=== PATIENT | female | born 1980 | race Caucasian/White ===

== ENCOUNTER 2017-09-13 12:25 | Inpatient (IN) | payer MEDICARE, MEDICAID ==
[2017-09-13] MEDS ORDERED: Morphine 4 MG/ML VIAL ONE (13:20)
--- NOTE | 2017-09-13 13:46 | C.PDOC ---
History Of Present Illness 36-year-old female, PMHx includes Diabetes and Autism, is sent to the emergency department by PMD with complaints of worsening wound to the right mid-back since 08/31. Patient states she developed an abscess to her right mid back and was seen in an urgent care on 08/31, where she was given antibiotics (Bactrim and Keflex). Patient returned to urgent care three days later, and the area was draining. States her wound was cultured but they did not drain it. Patient completed course of antibiotics a few days ago, but symptoms did not improve. She was seen by PMD Dr Moura in office today, where she was directed to ED for worsening abscess and failing outpatient treatment. Denies fevers, nausea/ vomiting, chills, shortness of breath, or any other associated symptoms. No other complaints at this time. Time Seen by Provider: 09/13/17 13:05 Chief Complaint (Nursing): Abnormal Skin Integrity Past Medical History Reviewed: Historical Data, Nursing Documentation, Vital Signs Vital Signs: Last Vital Signs Temp 98 F 09/13/17 12:32 Pulse 95 H 09/13/17 12:32 Resp 18 09/13/17 12:32 BP 91/64 L 09/13/17 12:32 Pulse Ox 98 09/13/17 14:17 - Medical History PMH: Hyperlipidemia Family History: States: No Known Family Hx - Social History Hx Alcohol Use: No Hx Substance Use: No - Immunization History Hx Tetanus Toxoid Vaccination: Yes Hx Influenza Vaccination: Yes Hx Pneumococcal Vaccination: No ED Course And Treatment - Laboratory Results Result Diagrams: 09/13/17 13:49 09/13/17 13:49 Lab Interpretation: Abnormal (Elevated glucose 518 with Na 129. Normal WBC) O2 Sat by Pulse Oximetry: 98 (RA) Pulse Ox Interpretation: Normal Progress Note: Patient treated with IV Morphine for pain and IV fluids and Insulin for elevated blood sugar. - Physician Consult Information Outcome Of Conversation: Case discussed with Dr Moura. She will be admitted and consultation with Dr Dennis obtained. He plans to keep her NPO tonight and debride the wound in the OR tomorrow. Medical Decision Making Medical Decision Making: Plan: * CMP * CBC * Morphine * Blood Culture * Reassess and Disposition Disposition - Disposition Disposition: HOSPITALIZED Disposition Time: 14:21 Condition: STABLE - POA Present On Arrival: Poor Glycemic Control - Clinical Impression Clinical Impression: Cutaneous abscess of back excluding buttocks - Scribe Statement The provider has reviewed the documentation as recorded by the Scribe (Hue Orellana) All medical record entries made by the Scribe were at my direction and personally dictated by me. I have reviewed the chart and agree that the record accurately reflects my personal performance of the history, physical exam, medical decision making, and the department course for this patient. I have also personally directed, reviewed, and agree with the discharge instructions and disposition.
[2017-09-13 13:57] LABS: BASO # 0.1 K/uL (0.0-0.2); BASO % 0.9 % (0.0-2.0); EOS # 0.1 K/uL (0.0-0.7); EOS % 0.8 % (0.0-4.0); HEMOGLOBIN 10.9 g/dL (11.0-16.0); LYMPH # 2.2 K/uL (1.0-4.3); LYMPH % 24.3 % (20.0-40.0); MEAN CORPUSCULAR HEMOGLOBIN 20.8 pg (27.0-31.0); MEAN CORPUSCULAR HGB CONC 31.6 g/dL (33.0-37.0); MEAN PLATELET VOLUME 7.6 fL (7.2-11.7); MONO # 0.8 K/uL (0.0-0.8); MONO % 8.7 % (0.0-10.0); NEUT % 65.3 % (50.0-75.0); NRBC % 0.2 % (0.0-2.0); RBC 5.25 Mil/uL (3.80-5.20); RED CELL DISTRIBUTION WIDTH 15.2 % (11.5-14.5); WHITE BLOOD COUNT 9.1 K/uL (4.8-10.8)
[2017-09-13 14:15] LABS: ALB/GLOB RATIO 1.1 (1.0-2.1); ALBUMIN 3.7 g/dL (3.5-5.0); ALT/SGPT 23 U/L (9-52); AST/SGOT 21 U/L (14-36); BLOOD UREA NITROGEN 14 mg/dL (7-17); CALCIUM 8.9 mg/dl (8.6-10.4); GFR AFRICAN-AMERICAN > 60; GFR NON-AFRICAN AMERICAN > 60
[2017-09-13] MEDS ORDERED: Sodium Chloride 0.9% 1,000 ML IV ONE (14:16)
[2017-09-13] MEDS ORDERED: (Novolin R) Insulin Human Regular 100 units/ml vial IV STA (14:16)
[2017-09-13] MEDS ORDERED: (Novolin R) Insulin Human Regular 100 units/ml vial ONE (14:24)
[2017-09-13] MEDS ORDERED: Sodium Chloride 0.9% 1,000 ML ONE (14:24)
--- NOTE | 2017-09-13 16:50 | CP.PCM.CON ---
History of Present Illness - History of Present Illness History of Present Illness: General Surgery- Dr. Dennis 36F pmhx significant for NIDDM and autisim came to the emergency department for a back wound that started to have purulent drainage on the first august. Patient went to urgent care and got cultures came back positive for MSSA, was put on sulfa and completed course of abx. Denies current fevers, chills, chest pain, shortness of breath, nausea, vomiting , diarrhea PMH: NIDDM, autism, boil on abdomen PSH: denies ALL: NKDA SocialHx: Lives w/ mother at home Review of Systems - Review of Systems All systems: reviewed and no additional remarkable complaints except - Constitutional Constitutional: As Per HPI Past Patient History - Past Social History Smoking Status: Never Smoked - NEUROLOGICAL Other/Comment: Autism - ENDOCRINE/METABOLIC Hx Diabetes Mellitus Type 2: Yes - INTEGUMENTARY Hx Cellulitis: Yes - PSYCHIATRIC Hx Substance Use: No - SURGICAL HISTORY Hx Surgeries: Yes Other/Comment: right ovarian cyst - ANESTHESIA Hx Anesthesia: Yes Hx Anesthesia Reactions: No Hx Malignant Hyperthermia: No Meds Allergies/Adverse Reactions: Allergies Allergy/AdvReac Type Severity Reaction Status Date / Time No Known Allergies Allergy Verified 09/13/17 12:34 - Medications Medications: Current Medications Acetaminophen (Tylenol 325mg Tab) 650 mg PO Q6 PRN PRN Reason: Fever >100.4 F Sodium Chloride (Sodium Chloride 0.9%) 1,000 mls @ 100 mls/hr IV .Q10H [facility] Vancomycin/Sodium Chloride (Vancomycin 1 Gm/Ns 200 Ml) 1 gm in 200 mls @ 133 mls/hr IVPB Q12H [facility] Stop: 09/18/17 16:46 Morphine Sulfate (Morphine) 1 mg IVP Q4 PRN PRN Reason: Pain, moderate (4-7) Physical Exam - Constitutional Appears: Non-toxic, No Acute Distress - Head Exam Head Exam: ATRAUMATIC - Eye Exam Eye Exam: EOMI. absent: Scleral icterus - ENT Exam ENT Exam: Mucous Membranes Moist - Respiratory Exam Respiratory Exam: NORMAL BREATHING PATTERN. absent: Accessory Muscle Use, Respiratory Distress - Cardiovascular Exam Cardiovascular Exam: +S1, +S2. absent: Bradycardia, Tachycardia - GI/Abdominal Exam GI & Abdominal Exam: Soft. absent: Distended, Firm, Rigid, Tenderness - Extremities Exam Extremities exam: Positive for: normal inspection. Negative for: calf tenderness - Neurological Exam Neurological exam: Alert, Oriented x3 - Skin Additional comments: back 10cm x 3cm active purulent drainage tender to palpation Results - Vital Signs Recent Vital Signs: Last Vital Signs Temp 98 F 09/13/17 12:32 Pulse 95 H 09/13/17 12:32 Resp 18 09/13/17 12:32 BP 91/64 L 09/13/17 12:32 Pulse Ox 98 09/13/17 14:21 - Labs Result Diagrams: 09/13/17 13:49 09/13/17 13:49 Labs: Laboratory Results - last 24 hr 09/13/17 09/13/17 09/13/17 13:49 13:49 15:28 WBC 9.1 RBC 5.25 H Hgb 10.9 L Hct 34.7 MCV 66.0 L MCH 20.8 L MCHC 31.6 L RDW 15.2 H Plt Count 534 H MPV 7.6 Neut % (Auto) 65.3 Lymph % (Auto) 24.3 Bond % (Auto) 8.7 Eos % (Auto) 0.8 Baso % (Auto) 0.9 Neut # (Auto) 6.0 Lymph # (Auto) 2.2 Bond # (Auto) 0.8 Eos # (Auto) 0.1 Baso # (Auto) 0.1 Sodium 129 L Potassium 4.3 Chloride 89 L Carbon Dioxide 28 Anion Gap 16 BUN 14 Creatinine 0.4 L Est GFR ( Amer) > 60 Est GFR (Non-Af Amer) > 60 POC Glucose (mg/dL) 366 H Random Glucose 518 H* Calcium 8.9 Total Bilirubin 0.5 AST 21 ALT 23 Alkaline Phosphatase 102 Total Protein 7.0 Albumin 3.7 Globulin 3.3 Albumin/Globulin Ratio 1.1 Assessment & Plan - Assessment and Plan (Free Text) Assessment: 36F back abscess active purulent drainage Plan: - NPO @ [facility] - IV Abx - Plan for OR tomorrow for I&D - f/u AM labs - discussed w/ Dr. Dennis surgical attending Sherif Inman PGY1
[2017-09-13] MEDS ORDERED: Tetanus/Diphtheria Toxoids 0.5 ml Syringe IM ONE (17:16)
[2017-09-13] MEDS: Vancomycin 1 gm/NS 200 ml 1 GM/200 ML BAG IVPB SCH (17:17)
--- NOTE | 2017-09-13 17:19 | CP.PCM.HP ---
History of Present Illness - History of Present Illness History of Present Illness: 36F pmhx significant for NIDDM and autisim came to the emergency department for a back wound that started to have purulent drainage on the first august. Patient went to urgent care and got cultures came back positive for MSSA, was put on sulfa and completed course of abx. Denies current fevers, chills, chest pain, shortness of breath, nausea, vomiting , diarrhea comes in with large necrotic unstageable wound on upper lumbar area PMH: NIDDM, autism, boil on abdomen PSH: denies ALL: NKDA SocialHx: Lives w/ mother at home Present on Admission - Present on Admission Any Indicators Present on Admission: No History of DVT/PE: No History of Uncontrolled Diabetes: No Urinary Catheter: No Decubitus Ulcer Present: No History Surgical Site Infection Following: None Review of Systems - Review of Systems Systems not reviewed;Unavailable: Altered Mental Status All systems: reviewed and no additional remarkable complaints except - Constitutional Constitutional: As Per HPI - EENT Eyes: absent: As Per HPI, Blind Spots, Blurred Vision, Change in Vision, Decreased Night Vision, Diplopia, Discharge, Dry Eye, Exophthalmos, Floaters, Irritation, Itchy Eyes, Loss of Peripheral Vision, Pain, Photophobia, Requires Corrective Lenses, Sees Flashes, Spots in Vision, Tunnel Vision, Other Visual Disturbances, Loss of Vision, Other Ears: absent: As Per HPI, Decreased Hearing, Ear Discharge, Ear Pain, Tinnitus, Abnormal Hearing, Disequilibrium, Dizziness, Other Nose/Mouth/Throat: absent: As Per HPI, Epistaxis, Nasal Congestion, Nasal Discharge, Nasal Obstruction, Nasal Trauma, Nose Pain, Post Nasal Drip, Sinus Pain, Sinus Pressure, Bleeding Gums, Change in Voice, Dental Pain, Dry Mouth, Dysphagia, Halitosis, Hoarsness, Lip Swelling, Mouth Lesions, Mouth Pain, Odynophagia, Sore Throat, Throat Swelling, Tongue Swelling, Facial Pain, Neck Pain, Neck Mass, Other - Breasts Breasts: absent: As Per HPI, Change in Shape, Mass, Pain, Nipple Discharge, Nipple Inversion, Skin Changes, Swelling, Other - Cardiovascular Cardiovascular: absent: As Per HPI, Acrocyanosis, Chest Pain, Chest Pain at Rest , Chest Pain with Activity, Claudication, Diaphoresis, Dyspnea, Dyspnea on Exertion, Edema, Irregular Heart Rhythm, Pain Radiating to Arm/Neck/Jaw, Leg Edema, Leg Ulcers, Lightheadedness, Orthopnea, Palpitations, Paroxysmal Nocturnal Dyspnea, Pedal Edema, Radiating Pain, Rapid Heart Rate, Slow Heart Rate, Syncope, Other - Respiratory Respiratory: absent: As Per HPI, Cough, Dyspnea, Hemoptysis, Dyspnea on Exertion , Wheezing, Snoring, Stridor, Pain on Inspiration, Chest Congestion, Excessive Mucous Production, Change in Mucous Color, Pain with Coughing, Other - Gastrointestinal Gastrointestinal: absent: As Per HPI, Abdominal Pain, Belching, Bloating, Change in Bowel Habits, Change in Stool Character, Coffee Ground Emesis, Constipation, Cramping, Diarrhea, Dyspepsia, Dysphagia, Early Satiety, Excessive Flatus, Fecal Incontinence, Heartburn, Hematemesis, Hematochezia, Loose Stools, Melena, Nausea, Odynophagia, Temesmus, Vomiting, Other - Genitourinary Genitourinary: absent: As Per HPI, Change in Urinary Stream, Difficulty Urinating, Dysuria, Flank Pain, Hematuria, Pyuria, Nocturia, Urinary Incontinence, Urinary Frequency, Urinary Hesitance, Urinary Urgency, Voiding Freq/Small Amts, Freq UTI, Hx Renal/Bladder Calculi, Hx /Renal Surgery, Bladder Distension, Other - Reproductive: Female Reproductive:Female: absent: As Per HPI, Amenorrhea, Amenorrhea/ Control, Currently Menstual, Cycle <21 Days, Cycle >35 Days, Cycle Variable, Menses 1-7 Days, Menses >/= 8 Days, Menses Variable, Cycle > 4 Weeks Between, No Menses for 6 Months, Heavy Menses, Light Menses, Normal Menses, Spotting Between Cycles , S/P Hysterectomy, Menopausal, Post Menopausal, Premenarche, Abnormal Vaginal Bleeding, Dysmenorrhea, Dyspareunia, Genital Lesions, Genital Pruritis, Pelvic Pain, Prolapse Symptoms, Sexual Dysfunction, Vaginal Discharge, Vaginal Dryness , Vaginal Odor, Vaginal Pruritis, Other - Menstruation Menstruation: absent: As Per HPI, Amenorrhea, Amenorrhea/ Control, Currently Menstual, Cycle <21 Days, Cycle >35 Days, Cycle Variable, Menses 1-7 Days, Menses >/= 8 Days, Menses Variable, Cycle > 4 Weeks Between, No Menses for 6 Months, Heavy Menses, Light Menses, Normal Menses, Spotting Between Cycles , S/P Hysterectomy, Menopausal, Post Menopausal, Premenarche, Abnormal Vaginal Bleeding, Dysmenorrhea, Other - Musculoskeletal Musculoskeletal: absent: As Per HPI, Abnormal Gait, Arthralgias, Atrophy, Back Pain, Deformity, Joint Swelling, Limited Range of Motion, Loss of Height, Muscle Cramps, Muscle Weakness, Myalgias, Neck Pain, Numbness, Radiating Pain into Limb, Stiffness, Tingling, Other - Integumentary Integumentary: As Per HPI, Skin Pain, Wounds - Neurological Neurological: As Per HPI - Psychiatric Psychiatric: absent: As Per HPI, Abnormal Sleep Pattern, Anhedonia, Anxiety, Auditory Hallucinations, Behavioral Changes, Change in Appetite, Change in Libido, Confusion, Depression, Difficulty Concentrating, Hallucinations, Homicidal Ideation, Hopelessness, Irritability, Memory Loss, Mood Swings, Panic Attacks, Paranoia, Suicidal Ideation, Visual Hallucinations, Tactile Hallucinations, Other - Endocrine Endocrine: absent: As Per HPI, Change in Body Appearance, Change in Libido, Cold Intolorance, Deepening of Voice, Excessive Sweating, Fatigue, Flushing, Heat Intolorance, Increase in Ring/Shoe/Hat Size, Palpitations, Polydipsia, Polyphagia, Polyuria, Other - Hematologic/Lymphatic Hematologic: absent: As Per HPI, Easy Bleeding, Easy Bruising, Lymphadenopathy, Other Past Patient History - Past Social History Smoking Status: Never Smoked - NEUROLOGICAL Other/Comment: Autism - ENDOCRINE/METABOLIC Hx Diabetes Mellitus Type 2: Yes - INTEGUMENTARY Hx Cellulitis: Yes - PSYCHIATRIC Hx Substance Use: No - SURGICAL HISTORY Hx Surgeries: Yes Other/Comment: right ovarian cyst - ANESTHESIA Hx Anesthesia: Yes Hx Anesthesia Reactions: No Hx Malignant Hyperthermia: No Meds Allergies/Adverse Reactions: Allergies Allergy/AdvReac Type Severity Reaction Status Date / Time No Known Allergies Allergy Verified 09/13/17 12:34 Physical Exam - Constitutional Appears: Non-toxic, No Acute Distress, Confused, Chronically Ill - Head Exam Head Exam: ATRAUMATIC, NORMAL INSPECTION, NORMOCEPHALIC - Eye Exam Eye Exam: PERRL. absent: Scleral icterus - ENT Exam ENT Exam: Mucous Membranes Dry, Normal External Ear Exam, Normal Oropharynx - Neck Exam Neck exam: Negative for: Lymphadenopathy - Respiratory Exam Respiratory Exam: Decreased Breath Sounds, Clear to Auscultation Bilateral - Cardiovascular Exam Cardiovascular Exam: REGULAR RHYTHM, +S1, +S2 - GI/Abdominal Exam GI & Abdominal Exam: Diminished Bowel Sounds, Soft. absent: Guarding, Rebound, Rigid, Tenderness - Rectal Exam Rectal Exam: Deferred - Exam Exam: NORMAL INSPECTION - Extremities Exam Extremities exam: Positive for: pedal pulses present. Negative for: calf tenderness, pedal edema, tenderness - Back Exam Back exam: rash noted. absent: CVA tenderness (L), CVA tenderness (R), NORMAL INSPECTION Additional comments: large 6cm necrotic lesion on back over midline with purulence - Neurological Exam Neurological exam: Alert, CN II-XII Intact, Oriented x3, Reflexes Normal - Psychiatric Exam Psychiatric exam: Normal Mood - Skin Skin Exam: Dry, Intact Results - Vital Signs Recent Vital Signs: Last Vital Signs Temp 98 F 09/13/17 12:32 Pulse 95 H 09/13/17 12:32 Resp 18 09/13/17 12:32 BP 91/64 L 09/13/17 12:32 Pulse Ox 98 09/13/17 14:21 - Labs Result Diagrams: 09/13/17 13:49 09/13/17 13:49 Labs: Laboratory Results - last 24 hr 09/13/17 09/13/17 09/13/17 13:49 13:49 15:28 WBC 9.1 RBC 5.25 H Hgb 10.9 L Hct 34.7 MCV 66.0 L MCH 20.8 L MCHC 31.6 L RDW 15.2 H Plt Count 534 H MPV 7.6 Neut % (Auto) 65.3 Lymph % (Auto) 24.3 Gosper % (Auto) 8.7 Eos % (Auto) 0.8 Baso % (Auto) 0.9 Neut # (Auto) 6.0 Lymph # (Auto) 2.2 Gosper # (Auto) 0.8 Eos # (Auto) 0.1 Baso # (Auto) 0.1 Sodium 129 L Potassium 4.3 Chloride 89 L Carbon Dioxide 28 Anion Gap 16 BUN 14 Creatinine 0.4 L Est GFR ( Amer) > 60 Est GFR (Non-Af Amer) > 60 POC Glucose (mg/dL) 366 H Random Glucose 518 H* Calcium 8.9 Total Bilirubin 0.5 AST 21 ALT 23 Alkaline Phosphatase 102 Total Protein 7.0 Albumin 3.7 Globulin 3.3 Albumin/Globulin Ratio 1.1 Decision To Admit - Pt Status Changed To: Hospital Disposition Of: Inpatient - Admit Certification Admit to Inpatient:: After my assessment, the patient will require hospitalization for at least two midnights. This is because of the severity of symptoms shown, intensity of services needed, and/or the medical risk in this patient being treated as an outpatient. - InPatient: Physician Admission Certification:: for patient safety and wellbeing will need admission for IV antibiotics and wound care - . Bed Request Type: Regular Admitting Physician: Rigoberto Henley
--- NOTE | 2017-09-13 17:33 | RAD ---
HISTORY: pre-op COMPARISON: None available. TECHNIQUE: Chest, one view. FINDINGS: Examination limited by habitus and hypoinflation. LUNGS: No focal consolidation. Numerous bilateral hilar nodular densities likely granulomas versus prominent vessels on end. Please note that chest x-ray has limited sensitivity for the detection of pulmonary masses. PLEURA: No significant pleural effusion identified. No definite pneumothorax . CARDIOVASCULAR: Heart size appears within normal limits. OSSEOUS STRUCTURES: No acute osseous abnormality identified. VISUALIZED UPPER ABDOMEN: Unremarkable. OTHER FINDINGS: None. IMPRESSION: Hypoinflation. Numerous bilateral hilar nodular densities identified, likely granulomas versus prominent vessels on end.
[2017-09-13 19:46] LABS: IRON 85 ug/dL (37-170)
[2017-09-13 19:55] LABS: % IRON SATURATION 30 (20-55); TOTAL IRON BINDING CAPACITY 283 ug/dL (250-450)
[2017-09-13] MEDS ORDERED: Morphine 4 MG/ML VIAL IVP PRN (20:00)
[2017-09-13] MEDS ORDERED: Pneumococcal 23-Valent Vaccine IM ONE (20:19)
[2017-09-13] MEDS: Piperacillin/Tazobact 3.375 GM in Sodium Chloride 100 ML IVPB SCH (20:37)
[2017-09-13] MEDS: (Novolin R) Insulin Human Regular 100 units/ml vial SC SCH (22:30)
--- NOTE | 2017-09-13 22:43 | CP.PCM.CON ---
History of Present Illness - History of Present Illness History of Present Illness: Reason for consult: pre-op back abscess Review of Systems - Constitutional Constitutional: Anorexia - Cardiovascular Cardiovascular: absent: Chest Pain, Dyspnea on Exertion, Edema - Respiratory Respiratory: absent: Cough, Dyspnea on Exertion - Gastrointestinal Gastrointestinal: absent: Melena, Vomiting Past Patient History - Past Medical History & Family History Past Medical History?: Yes - Past Social History Smoking Status: Never Smoked - NEUROLOGICAL Other/Comment: Autism - ENDOCRINE/METABOLIC Hx Diabetes Mellitus Type 2: Yes - INTEGUMENTARY Hx Cellulitis: Yes (hx. of boils from the back area) - MUSCULOSKELETAL/RHEUMATOLOGICAL Hx Falls: No - PSYCHIATRIC Hx Substance Use: No - SURGICAL HISTORY Hx Surgeries: Yes Other/Comment: right ovarian cyst - ANESTHESIA Hx Anesthesia: Yes Hx Anesthesia Reactions: No Hx Malignant Hyperthermia: No Meds Allergies/Adverse Reactions: Allergies Allergy/AdvReac Type Severity Reaction Status Date / Time No Known Allergies Allergy Verified 09/13/17 12:34 - Medications Medications: Current Medications Acetaminophen (Tylenol 325mg Tab) 650 mg PO Q6 PRN PRN Reason: Fever >100.4 F Sodium Chloride (Sodium Chloride 0.9%) 1,000 mls @ 100 mls/hr IV .Q10H [facility] Vancomycin/Sodium Chloride (Vancomycin 1 Gm/Ns 200 Ml) 1 gm in 200 mls @ 133 mls/hr IVPB Q12H [facility] Stop: 09/18/17 17:01 Last Admin: 09/13/17 17:17 Dose: 133 mls/hr Piperacillin Sod/Tazobactam (Sod 3.375 gm/ Sodium Chloride) 100 mls @ 200 mls/ hr IVPB Q8H [facility] Last Admin: 09/13/17 20:37 Dose: 200 mls/hr Insulin Human Regular (Novolin R) 0 unit SC ACHS RADHA PRN Reason: Protocol Morphine Sulfate (Morphine) 1 mg IVP Q4 PRN PRN Reason: Pain, moderate (4-7) Physical Exam - Constitutional Appears: Non-toxic - Eye Exam Eye Exam: absent: Scleral icterus - ENT Exam ENT Exam: Mucous Membranes Moist - Neck Exam Neck exam: Positive for: Full Rom - Respiratory Exam Respiratory Exam: Clear to Auscultation Bilateral - Cardiovascular Exam Cardiovascular Exam: REGULAR RHYTHM - Extremities Exam Extremities exam: Negative for: pedal edema - Back Exam Back exam: absent: CVA tenderness (L), vertebral tenderness Additional comments: Necrotic purulent ulcer in the upper lumbar area Results - Vital Signs Recent Vital Signs: Last Vital Signs Temp 97.3 F L 09/13/17 18:30 Pulse 88 09/13/17 18:30 Resp 20 09/13/17 18:30 BP 95/66 L 09/13/17 18:30 Pulse Ox 97 09/13/17 18:30 - Labs Result Diagrams: 09/13/17 13:49 09/13/17 13:49 Labs: Laboratory Results - last 24 hr 09/13/17 09/13/17 09/13/17 13:49 13:49 15:28 WBC 9.1 RBC 5.25 H Hgb 10.9 L Hct 34.7 MCV 66.0 L MCH 20.8 L MCHC 31.6 L RDW 15.2 H Plt Count 534 H MPV 7.6 Neut % (Auto) 65.3 Lymph % (Auto) 24.3 [place]borne % (Auto) 8.7 Eos % (Auto) 0.8 Baso % (Auto) 0.9 Neut # (Auto) 6.0 Lymph # (Auto) 2.2 [place]borne # (Auto) 0.8 Eos # (Auto) 0.1 Baso # (Auto) 0.1 Sodium 129 L Potassium 4.3 Chloride 89 L Carbon Dioxide 28 Anion Gap 16 BUN 14 Creatinine 0.4 L Est GFR ( Amer) > 60 Est GFR (Non-Af Amer) > 60 POC Glucose (mg/dL) 366 H Random Glucose 518 H* Calcium 8.9 Iron TIBC % Saturation Total Bilirubin 0.5 AST 21 ALT 23 Alkaline Phosphatase 102 Total Protein 7.0 Albumin 3.7 Globulin 3.3 Albumin/Globulin Ratio 1.1 09/13/17 19:29 WBC RBC Hgb Hct MCV MCH MCHC RDW Plt Count MPV Neut % (Auto) Lymph % (Auto) [place]borne % (Auto) Eos % (Auto) Baso % (Auto) Neut # (Auto) Lymph # (Auto) Osborne # (Auto) Eos # (Auto) Baso # (Auto) Sodium Potassium Chloride Carbon Dioxide Anion Gap BUN Creatinine Est GFR ( Amer) Est GFR (Non-Af Amer) POC Glucose (mg/dL) Random Glucose Calcium Iron 85 TIBC 283 % Saturation 30 Total Bilirubin AST ALT Alkaline Phosphatase Total Protein Albumin Globulin Albumin/Globulin Ratio Assessment & Plan - Assessment and Plan (Free Text) Assessment: Purulent necrotic wound in the high lumbar area T2dm Autism Lipid disorder Plan: Patient may go for I&D/ debridement of necrotic wound with acceptable risk. Antibiotic by Dr Henley Endo consult w/ Dr Ritchie
[2017-09-14] MEDS: Sodium Chloride 0.9% 1,000 ML IV SCH ×3 (00:05→21:59)
[2017-09-14] MEDS: Piperacillin/Tazobact 3.375 GM in Sodium Chloride 100 ML IVPB SCH ×3 (02:11→17:57)
[2017-09-14] MEDS: Vancomycin 1 gm/NS 200 ml 1 GM/200 ML BAG IVPB SCH ×2 (04:44→17:55)
[2017-09-14] MEDS: (Novolin R) Insulin Human Regular 100 units/ml vial SC SCH ×4 (07:50→21:58)
[2017-09-14 08:39] LABS: BASO # 0.1 K/uL (0.0-0.2); BASO % 0.7 % (0.0-2.0); EOS # 0.1 K/uL (0.0-0.7); EOS % 1.2 % (0.0-4.0); LYMPH # 1.9 K/uL (1.0-4.3); LYMPH % 23.3 % (20.0-40.0); MEAN CELL VOLUME 66.4 fL (81.0-99.0); MEAN CORPUSCULAR HEMOGLOBIN 20.9 pg (27.0-31.0); MEAN CORPUSCULAR HGB CONC 31.5 g/dL (33.0-37.0); MEAN PLATELET VOLUME 7.8 fL (7.2-11.7); MONO # 0.7 K/uL (0.0-0.8); MONO % 8.4 % (0.0-10.0); NEUT # 5.5 K/uL (1.8-7.0); NEUT % 66.4 % (50.0-75.0); NRBC % 0.1 % (0.0-2.0); RBC 5.26 Mil/uL (3.80-5.20); RED CELL DISTRIBUTION WIDTH 15.1 % (11.5-14.5); WHITE BLOOD COUNT 8.4 K/uL (4.8-10.8)
[2017-09-14] MEDS ORDERED: Midazolam 2 MG/2 ML VIAL ONE (09:24)
[2017-09-14] MEDS ORDERED: Propofol 10 mg/ml Inj (20 ML) ONE (09:24)
[2017-09-14] MEDS ORDERED: Lactated Ringer's 1,000 ML IV ONE (09:30)
[2017-09-14] MEDS ORDERED: Bupivacaine-Epi 0.5%-1:200,000 PF Inj IJ ONE (10:26)
--- NOTE | 2017-09-14 11:00 | PCM.SURG1 ---
Surgeon's Initial Post Op Note - Surgeon's Notes Surgeon: Dr. Dennis Keyseating Machine Set Up Operator: PGY1, Type of Anesthesia: General Endo, Local Pre-Operative Diagnosis: Infected Back Abscess Operative Findings: necrotic tissue on the skin, subcutatneous and muscle tissue. Infection tracked 10cm x 8 cm. for details see op note Post-Operative Diagnosis: as above Operation Performed: incision drainage and debridement of skin, subcutaneous tissue, and muscle of back Specimen/Specimens Removed: skin and subcutaneous tissue. wound culture Estimated Blood Loss: EBL {In ML}: 10 Drains Used: No Drains Date of Surgery/Procedure: 09/14/17 Time of Surgery/Procedure: 11:00
[2017-09-14 16:44] VITALS: RESP 20
--- NOTE | 2017-09-14 17:44 | CP.PCM.PN ---
Subjective - Date & Time of Evaluation Date of Evaluation: 09/14/17 Time of Evaluation: 07:00 - Subjective Subjective: events noted consultants notes apprecated IV rx in progress Objective - Vital Signs/Intake and Output Vital Signs (last 24 hours): Temp Pulse Resp BP Pulse Ox 98.5 F 89 20 95/65 L 95 09/14/17 16:00 09/14/17 16:00 09/14/17 16:00 09/14/17 16:00 09/14/17 16:00 Intake and Output: 09/14/17 09/14/17 06:59 18:59 Intake Total 100 1850 Output Total 200 Balance -100 1850 - Medications Medications: Current Medications Acetaminophen (Tylenol 325mg Tab) 650 mg PO Q6 PRN PRN Reason: Fever >100.4 F Sodium Chloride (Sodium Chloride 0.9%) 1,000 mls @ 100 mls/hr IV .Q10H [facility] Last Admin: 09/14/17 09:16 Dose: Not Given Vancomycin/Sodium Chloride (Vancomycin 1 Gm/Ns 200 Ml) 1 gm in 200 mls @ 133 mls/hr IVPB Q12H [facility] Stop: 09/18/17 17:01 Last Admin: 09/14/17 04:44 Dose: 133 mls/hr Piperacillin Sod/Tazobactam (Sod 3.375 gm/ Sodium Chloride) 100 mls @ 200 mls/ hr IVPB Q8H [facility] Last Admin: 09/14/17 10:00 Dose: 100 mls Insulin Human Regular (Novolin R) 0 unit SC ACHS RADHA PRN Reason: Protocol Last Admin: 09/14/17 11:37 Dose: Not Given Morphine Sulfate (Morphine) 1 mg IVP Q4 PRN PRN Reason: Pain, moderate (4-7) - Labs Labs: 09/14/17 08:21 09/13/17 13:49 - Constitutional Appears: Non-toxic, Chronically Ill - Head Exam Head Exam: NORMOCEPHALIC - Eye Exam Eye Exam: PERRL - ENT Exam ENT Exam: Normal External Ear Exam - Neck Exam Neck Exam: absent: Lymphadenopathy - Respiratory Exam Respiratory Exam: Decreased Breath Sounds, Clear to Ausculation Bilateral - Cardiovascular Exam Cardiovascular Exam: REGULAR RHYTHM, +S1, +S2 - GI/Abdominal Exam GI & Abdominal Exam: Distended, Soft. absent: Tenderness - Rectal Exam Rectal Exam: Deferred - Exam Exam: NORMAL INSPECTION - Extremities Exam Extremities Exam: absent: Pedal Edema - Back Exam Back Exam: absent: CVA tenderness (L), CVA tenderness (R) - Neurological Exam Neurological Exam: Alert, Awake, Oriented x3 - Psychiatric Exam Psychiatric exam: Normal Mood - Skin Skin Exam: Dry, Intact Assessment and Plan (1) Diabetes Status: Acute (2) Cutaneous abscess of back excluding buttocks Status: Acute - Assessment and Plan (Free Text) Assessment: cont wound care and IV antibiotics
--- NOTE | 2017-09-14 19:48 | OP ---
PROCEDURE DATE: 09/14/2017 PREOPERATIVE DIAGNOSIS: Large abscess on the back. POSTOPERATIVE DIAGNOSIS: Large abscess on the back. PROCEDURE PERFORMED: Debridement of back with excision of skin, subcutaneous tissue, and muscle. SURGEON: Deepak Dennis Jr., MD [employer]ILY [employer] TEACHER: Dr. Inman. ANESTHESIA ADMINISTERED BY: Velvet Cedillo CRNA INDICATIONS: The patient is a young woman with autism and mental retardation, who presents with a large necrotic abscess on her back. OPERATIVE FINDINGS: This is completely unroofed, completely cleaned up, there is a blood loss of over 20 mL. Cultures were taken of the purulent tissue. After this was completely debrided back to clean tissue, we then packed this and injected Marcaine with epinephrine and variety of other things, stuffed sponge, but was primarily oozing and the wound was then completely packed open with Iodoform gauze. The tissue debrided with skin, subcutaneous tissue and muscle. OPERATION CARRIED OUT: As above. Deepak Dennis Jr., MD
--- NOTE | 2017-09-14 22:57 | CP.PCM.PN ---
Subjective - Date & Time of Evaluation Date of Evaluation: 09/14/17 Time of Evaluation: 08:30 - Subjective Subjective: Pt seen with family at bedside NAD no fever Objective - Vital Signs/Intake and Output Vital Signs (last 24 hours): Temp Pulse Resp BP Pulse Ox 98.5 F 89 20 95/65 L 95 09/14/17 16:00 09/14/17 16:00 09/14/17 16:00 09/14/17 16:00 09/14/17 16:00 Intake and Output: 09/14/17 09/15/17 18:59 06:59 Intake Total 1850 Balance 1850 - Medications Medications: Current Medications Acetaminophen (Tylenol 325mg Tab) 650 mg PO Q6 PRN PRN Reason: Fever >100.4 F Sodium Chloride (Sodium Chloride 0.9%) 1,000 mls @ 100 mls/hr IV .Q10H [facility] Last Admin: 09/14/17 21:59 Dose: 100 mls/hr Vancomycin/Sodium Chloride (Vancomycin 1 Gm/Ns 200 Ml) 1 gm in 200 mls @ 133 mls/hr IVPB Q12H [facility] Stop: 09/18/17 17:01 Last Admin: 09/14/17 17:55 Dose: 133 mls/hr Piperacillin Sod/Tazobactam (Sod 3.375 gm/ Sodium Chloride) 100 mls @ 200 mls/ hr IVPB Q8H [facility] Last Admin: 09/14/17 17:57 Dose: 200 mls/hr Insulin Human Regular (Novolin R) 0 unit SC ACHS RADHA PRN Reason: Protocol Last Admin: 09/14/17 21:58 Dose: 2 unit Morphine Sulfate (Morphine) 1 mg IVP Q4 PRN PRN Reason: Pain, moderate (4-7) - Labs Labs: 09/14/17 08:21 09/13/17 13:49 - Constitutional Appears: Non-toxic - Head Exam Head Exam: absent: ATRAUMATIC - Eye Exam Eye Exam: absent: Scleral icterus - ENT Exam ENT Exam: Mucous Membranes Moist - Neck Exam Neck Exam: Full ROM - Respiratory Exam Respiratory Exam: Decreased Breath Sounds - Cardiovascular Exam Cardiovascular Exam: REGULAR RHYTHM - GI/Abdominal Exam GI & Abdominal Exam: Soft - Extremities Exam Extremities Exam: absent: Pedal Edema - Back Exam Additional comments: cutaneous abscess in the upper lumbar area Assessment and Plan - Assessment and Plan (Free Text) Assessment: Cutaneous abscess in upper lumbar area T2dm Autism Plan: Ok for debridement/I&D today Abtx as per Dr Henley
[2017-09-15] MEDS: Piperacillin/Tazobact 3.375 GM in Sodium Chloride 100 ML IVPB SCH ×3 (01:04→23:05)
[2017-09-15] MEDS: Vancomycin 1 gm/NS 200 ml 1 GM/200 ML BAG IVPB SCH ×2 (05:28→17:25)
[2017-09-15] MEDS: (Novolin R) Insulin Human Regular 100 units/ml vial SC SCH ×3 (07:58→17:30)
[2017-09-15 08:21] LABS: BLOOD UREA NITROGEN 11 mg/dL (7-17); CALCIUM 8.8 mg/dl (8.6-10.4); GFR AFRICAN-AMERICAN > 60; GFR NON-AFRICAN AMERICAN > 60
--- NOTE | 2017-09-15 08:24 | CP.PCM.PN ---
Subjective - Date & Time of Evaluation Date of Evaluation: 09/15/17 Time of Evaluation: 06:40 - Subjective Subjective: General Surgery- Dr. Dennis Patient seen and examined at bedside this AM. No acute events overnight. Dressing saturated w/ serous fluid. Changed at bedside this AM. denies pain at this time. Denies F/C CP/SOB N/V/D Objective - Vital Signs/Intake and Output Vital Signs (last 24 hours): Temp Pulse Resp BP Pulse Ox 97.9 F 83 20 99/65 L 97 09/15/17 00:00 09/15/17 00:00 09/15/17 00:00 09/15/17 00:00 09/15/17 00:00 Intake and Output: 09/15/17 09/15/17 06:59 18:59 Intake Total 1900 Balance 1900 - Medications Medications: Current Medications Acetaminophen (Tylenol 325mg Tab) 650 mg PO Q6 PRN PRN Reason: Fever >100.4 F Sodium Chloride (Sodium Chloride 0.9%) 1,000 mls @ 100 mls/hr IV .Q10H [facility] Last Admin: 09/14/17 21:59 Dose: 100 mls/hr Vancomycin/Sodium Chloride (Vancomycin 1 Gm/Ns 200 Ml) 1 gm in 200 mls @ 133 mls/hr IVPB Q12H [facility] Stop: 09/18/17 17:01 Last Admin: 09/15/17 05:28 Dose: 133 mls/hr Piperacillin Sod/Tazobactam (Sod 3.375 gm/ Sodium Chloride) 100 mls @ 200 mls/ hr IVPB Q8H [facility] Last Admin: 09/15/17 01:04 Dose: 200 mls/hr Insulin Human Regular (Novolin R) 0 unit SC ACHS [facility] PRN Reason: Protocol Last Admin: 09/15/17 07:58 Dose: 3 unit Morphine Sulfate (Morphine) 1 mg IVP Q4 PRN PRN Reason: Pain, moderate (4-7) - Labs Labs: 09/14/17 08:21 09/13/17 13:49 - Constitutional Appears: Non-toxic, No Acute Distress - Eye Exam Eye Exam: EOMI. absent: Scleral icterus - ENT Exam ENT Exam: Mucous Membranes Moist - Respiratory Exam Respiratory Exam: NORMAL BREATHING PATTERN. absent: Accessory Muscle Use, Respiratory Distress - Cardiovascular Exam Cardiovascular Exam: +S1, +S2. absent: Bradycardia, Tachycardia - GI/Abdominal Exam GI & Abdominal Exam: Soft. absent: Firm, Guarding, Rigid, Tenderness - Back Exam Additional comments: back dressing saturated w/ serous drainage. packing changed at bedside w/ 1" iodoform packing. no erythema or induration - Neurological Exam Neurological Exam: Alert, Awake, Oriented x3 - Skin Skin Exam: Dry, Warm Assessment and Plan - Assessment and Plan (Free Text) Assessment: 36F s/p debridement of skin, soft tissue, and muscle of infected back wound Plan: f/u wound cultures local wound care dressing changes q1-2 days w/ iodoform packing and dry dressing on top Abx pain control PRN discussed w/ Dr. Sonny Inman PGY1
[2017-09-15] MEDS: Sodium Chloride 0.9% 1,000 ML IV SCH ×2 (13:16→17:26)
[2017-09-15] MEDS ORDERED: Piperacill/Tazo 3.375gm in Dex 3.375 GM/50 ML BAG IVPB SCH (18:00)
--- NOTE | 2017-09-15 18:02 | CP.PCM.PN ---
Subjective - Date & Time of Evaluation Date of Evaluation: 09/15/17 Time of Evaluation: 06:00 - Subjective Subjective: cultures pending wound large and deep drainage ++ glucose high Dr Cam on board Objective - Vital Signs/Intake and Output Vital Signs (last 24 hours): Temp Pulse Resp BP Pulse Ox 98.4 F 89 20 100/69 95 09/15/17 17:07 09/15/17 17:07 09/15/17 17:07 09/15/17 17:07 09/15/17 17:07 Intake and Output: 09/15/17 09/15/17 06:59 18:59 Intake Total 1900 900 Balance 1900 900 - Medications Medications: Current Medications Acetaminophen (Tylenol 325mg Tab) 650 mg PO Q6 PRN PRN Reason: Fever >100.4 F Sodium Chloride (Sodium Chloride 0.9%) 1,000 mls @ 100 mls/hr IV .Q10H [facility] Last Admin: 09/15/17 17:26 Dose: Not Given Vancomycin/Sodium Chloride (Vancomycin 1 Gm/Ns 200 Ml) 1 gm in 200 mls @ 133 mls/hr IVPB Q12H [facility] Stop: 09/18/17 17:01 Last Admin: 09/15/17 17:25 Dose: 133 mls/hr Piperacillin Sod/Tazobactam Sod (Zosyn 3.375 Gm Iv Premix) 3.375 gm in 50 mls @ 100 mls/hr IVPB Q8H [facility] Insulin Human Regular (Novolin R) 0 unit SC ACHS RADHA PRN Reason: Protocol Last Admin: 09/15/17 17:30 Dose: 4 unit Morphine Sulfate (Morphine) 1 mg IVP Q4 PRN PRN Reason: Pain, moderate (4-7) - Labs Labs: 09/14/17 08:21 09/15/17 07:50 - Constitutional Appears: Non-toxic, Chronically Ill - Head Exam Head Exam: NORMOCEPHALIC - Eye Exam Eye Exam: PERRL - ENT Exam ENT Exam: Mucous Membranes Dry - Neck Exam Neck Exam: absent: Lymphadenopathy - Respiratory Exam Respiratory Exam: Decreased Breath Sounds - Cardiovascular Exam Cardiovascular Exam: REGULAR RHYTHM - GI/Abdominal Exam GI & Abdominal Exam: Distended, Soft - Rectal Exam Rectal Exam: Deferred Assessment and Plan (1) Diabetes Status: Acute (2) Cutaneous abscess of back excluding buttocks Status: Acute - Assessment and Plan (Free Text) Assessment: cont iv rx and wound care adjust insulin dose await cultures
[2017-09-15] MEDS ORDERED: (Novolin R) Insulin Human Regular 100 units/ml vial SC SCH (22:00)
[2017-09-15] MEDS ORDERED: (Lantus) Insulin Glargine, Recombinant SC STA (23:57)
[2017-09-16] MEDS: Sodium Chloride 0.9% 1,000 ML IV SCH ×3 (01:48→21:59)
--- NOTE | 2017-09-16 04:34 | CON ---
DATE: ENDOCRINOLOGY CONSULTATION LOCATION: Room 371. HISTORY OF PRESENT ILLNESS: This is a 36-year-old female with known history of type 2 diabetes on combinational therapy, presenting here with an infected abscess and cellulitis in the lower back area and is now being referred for diabetic evaluation because of persistent hyperglycemic accelerations as noted thereof. PAST MEDICAL HISTORY: History of type 2 diabetes, currently on metformin given as 1 gm b.i.d. and Trulicity given once weekly subcutaneously and the exact dose and regimen is not known at this time. History of hypertension and dyslipidemia. History of underlying autism and is actually mentally challenged as noted. FAMILY HISTORY: Positive for diabetes and hypertension. SOCIAL HISTORY: The patient has a very supportive family. No known substance use. REVIEW OF SYSTEMS: As mentioned above admits generalized body weakness with easy fatigability and tiredness and suboptimal energy level. Admits to episodic bouts of dizziness and lightheadedness, worse in the last few days prior to admission. No chest pains, palpitations. or PNDs. Her oral intake has been variable with occasional nausea and dyspepsia. Admits perpetual constipation. Also admits to marked polyuria, nocturia, and polydipsia, and about a 5-pound or so weight loss. PHYSICAL EXAMINATION: GENERAL: This is an average-built female, in no apparent distress. VITAL SIGNS: Blood pressure of 140/80, pulse of 70 beats per minute and regular, temperature 98, respirations 20. Height is 5 feet 5 inches, weight is 140 pounds. HEENT: Head is normocephalic. Eyes anicteric with pink conjunctivae. Funduscopy not possible at this time. Ears, nose, and throat otherwise normal. NECK: Supple. Thyroid gland is normal in size. No carotid bruits or any cervical adenopathy. CARDIOPULMONARY: Shows adynamic precordium. S1 and S2 is rapid and regular. LUNGS: Clear to auscultation. ABDOMEN: Flat, soft with positive bowel sounds. MUSCULOSKELETAL: There is an infected abscess with purulent exudate noted in the lower lumbar area as noted. EXTREMITIES: No peripheral edema. Pulses are +2 bilaterally. LABORATORY DATA: Her chemistry shows a BUN of 11, sodium 137, potassium 4.2, chloride 104, CO2 of 24, glucose 268, and creatinine 0.5. Her glucose levels have ranged from 339 to 386 mg/dL. Her initial glucose was 518 mg/dL with sodium of 129. ASSESSMENT: This is a 36-year-old female with uncontrolled and decompensated type 2 insulin-requiring diabetes presenting here with an abscess in the lower back area and clearly related to a suboptimal metabolic control with diabetic condition and clearly insulin requiring at this time to optimize her metabolic control thereof. PLAN OF MANAGEMENT: As discussed with the staff, we will start her on basal and bolus insulin regimen to optimize metabolic control. We will add Lantus given as 20 units subcutaneously at bedtime daily to start tonight. We will also add Novolog given as 10 units subcutaneous t.i.d. before meals to start tomorrow morning at breakfast time as ordered. We modify the coverage scale to avoid hypoglycemia and detailed orders have been given. We will titrate incrementally as indicated to optimize metabolic control. Her hemoglobin A1c will be done to confirm her prior glycemic control and baseline thyroid function studies will be ordered. A serum C-peptide and also a JODI-65 antibody to confirm the presence of underlying autoimmunity will also be ordered at this time. We will initiate diet education and dietary instructions to the mother and also the teaching for insulin administration to be undertaken by the mother prior to her discharge. We will also consult dietary evaluation and healthier food choices, again to be given to the mother prior to her discharge. We will follow with you. Neda Ritchie MD
[2017-09-16] MEDS: Piperacillin/Tazobact 3.375 GM in Sodium Chloride 100 ML IVPB SCH ×3 (06:26→21:59)
[2017-09-16 07:29] LABS: BASO # 0.1 K/uL (0.0-0.2); BASO % 0.7 % (0.0-2.0); EOS # 0.2 K/uL (0.0-0.7); EOS % 2.6 % (0.0-4.0); HEMOGLOBIN 10.8 g/dL (11.0-16.0); LYMPH # 2.3 K/uL (1.0-4.3); LYMPH % 28.8 % (20.0-40.0); MEAN CELL VOLUME 66.3 fL (81.0-99.0); MEAN CORPUSCULAR HEMOGLOBIN 21.2 pg (27.0-31.0); MEAN PLATELET VOLUME 7.5 fL (7.2-11.7); MONO # 0.6 K/uL (0.0-0.8); MONO % 7.6 % (0.0-10.0); NEUT # 4.9 K/uL (1.8-7.0); NEUT % 60.3 % (50.0-75.0); NRBC % 0.1 % (0.0-2.0); RBC 5.08 Mil/uL (3.80-5.20); RED CELL DISTRIBUTION WIDTH 15.1 % (11.5-14.5); WHITE BLOOD COUNT 8.2 K/uL (4.8-10.8)
[2017-09-16] MEDS ORDERED: (Novolog) Insulin Aspart, Recombinant 100 u/ml 10 ml vial SC SCH (07:30)
[2017-09-16 07:35] LABS: IRON 39 ug/dL (37-170)
[2017-09-16 07:44] LABS: ALB/GLOB RATIO 1.1 (1.0-2.1); ALBUMIN 3.6 g/dL (3.5-5.0); ALT/SGPT 19 U/L (9-52); AST/SGOT 16 U/L (14-36); BLOOD UREA NITROGEN 14 mg/dL (7-17); CALCIUM 9.1 mg/dl (8.6-10.4); GFR AFRICAN-AMERICAN > 60; GFR NON-AFRICAN AMERICAN > 60; HDL CHOLESTEROL 39 mg/dL (30-70)
[2017-09-16 07:45] LABS: % IRON SATURATION 13 (20-55); TOTAL IRON BINDING CAPACITY 304 ug/dL (250-450)
[2017-09-16] MEDS: Vancomycin 1 gm/NS 200 ml 1 GM/200 ML BAG IVPB SCH ×2 (07:45→17:30)
[2017-09-16 07:54] LABS: LDL CHOLESTEROL < 30 mg/dL (0-129)
[2017-09-16] MEDS: (Novolog) Insulin Aspart, Recombinant 100 u/ml 10 ml vial SC SCH ×6 (08:14→22:03)
--- NOTE | 2017-09-16 09:12 | CP.PCM.PN ---
Subjective - Date & Time of Evaluation Date of Evaluation: 09/16/17 Time of Evaluation: 07:40 - Subjective Subjective: General Surgery- Dr. Dennis Patient seen and examined at bedside this AM. No acute events overnight. Dressing saturated w/ serous fluid. Changed at bedside this AM. denies pain at this time. pt has good appetite and tolerating regular diet. Denies F/C CP/SOB N /V/D Objective - Vital Signs/Intake and Output Vital Signs (last 24 hours): Temp Pulse Resp BP Pulse Ox 97.9 F 84 20 106/73 95 09/16/17 08:00 09/16/17 08:00 09/16/17 08:00 09/16/17 08:00 09/16/17 08:00 Intake and Output: 09/16/17 09/16/17 06:59 18:59 Intake Total 1150 800 Balance 1150 800 - Medications Medications: Current Medications Acetaminophen (Tylenol 325mg Tab) 650 mg PO Q6 PRN PRN Reason: Fever >100.4 F Sodium Chloride (Sodium Chloride 0.9%) 1,000 mls @ 100 mls/hr IV .Q10H [facility] Last Admin: 09/16/17 01:48 Dose: 100 mls/hr Vancomycin/Sodium Chloride (Vancomycin 1 Gm/Ns 200 Ml) 1 gm in 200 mls @ 133 mls/hr IVPB Q12H [facility] Stop: 09/18/17 17:01 Last Admin: 09/16/17 07:45 Dose: 133 mls/hr Piperacillin Sod/Tazobactam (Sod 3.375 gm/ Sodium Chloride) 100 mls @ 200 mls/ hr IVPB Q8H [facility] Last Admin: 09/16/17 06:26 Dose: 200 mls/hr Insulin Aspart (Novolog) 10 unit SC AC [facility] Last Admin: 09/16/17 08:13 Dose: 10 unit Insulin Aspart (Novolog) 0 unit SC ACHS [facility] Last Admin: 09/16/17 08:14 Dose: 3 unit Insulin Glargine (Lantus) 24 unit SC HS [facility]HA Morphine Sulfate (Morphine) 1 mg IVP Q4 PRN PRN Reason: Pain, moderate (4-7) - Labs Labs: 09/16/17 07:09 09/16/17 07:09 - Constitutional Appears: Non-toxic, No Acute Distress - Eye Exam Eye Exam: EOMI. absent: Scleral icterus - Respiratory Exam Respiratory Exam: NORMAL BREATHING PATTERN. absent: Accessory Muscle Use, Respiratory Distress - Cardiovascular Exam Cardiovascular Exam: +S1, +S2. absent: Bradycardia, Tachycardia - Extremities Exam Extremities Exam: absent: Calf Tenderness - Back Exam Additional comments: Dressing saturated dressing changed at bedside only serosang drainage - Neurological Exam Neurological Exam: Awake Additional comments: autistic & MR - Skin Skin Exam: Intact, Warm Assessment and Plan - Assessment and Plan (Free Text) Assessment: 36F s/p debridement of skin, soft tissue, and muscle of infected back wound POD# 2 Plan: local wound care dressing changes q1-2 days w/ iodoform packing and dry dressing on top Abx pain control PRN cleared for D/C from a surgical standpoint w/ VNS follow up in office in 1-2 weeks discussed w/ Dr. Sonny Inman PGY1
--- NOTE | 2017-09-16 16:13 | CP.PCM.PN ---
Subjective - Date & Time of Evaluation Date of Evaluation: 09/15/17 Time of Evaluation: 07:30 - Subjective Subjective: Pt seen at bedside with Dr Dennis and family member at bedside s/p I&D/ drainage of wound Objective - Vital Signs/Intake and Output Vital Signs (last 24 hours): Temp Pulse Resp BP Pulse Ox 97.9 F 84 20 106/73 95 09/16/17 08:00 09/16/17 08:00 09/16/17 08:00 09/16/17 08:00 09/16/17 08:00 Intake and Output: 09/16/17 09/16/17 06:59 18:59 Intake Total 1150 2250 Balance 1150 2250 - Medications Medications: Current Medications Acetaminophen (Tylenol 325mg Tab) 650 mg PO Q6 PRN PRN Reason: Fever >100.4 F Sodium Chloride (Sodium Chloride 0.9%) 1,000 mls @ 100 mls/hr IV .Q10H [facility] Last Admin: 09/16/17 12:15 Dose: Not Given Vancomycin/Sodium Chloride (Vancomycin 1 Gm/Ns 200 Ml) 1 gm in 200 mls @ 133 mls/hr IVPB Q12H [facility] Stop: 09/18/17 17:01 Last Admin: 09/16/17 07:45 Dose: 133 mls/hr Piperacillin Sod/Tazobactam (Sod 3.375 gm/ Sodium Chloride) 100 mls @ 200 mls/ hr IVPB Q8H [facility] Last Admin: 09/16/17 14:23 Dose: 200 mls/hr Insulin Aspart (Novolog) 0 unit SC ACHS [facility] Last Admin: 09/16/17 11:29 Dose: 3 unit Insulin Aspart (Novolog) 14 unit SC AC [facility] Last Admin: 09/16/17 11:28 Dose: 14 unit Insulin Glargine (Lantus) 24 unit SC HS RADHA Morphine Sulfate (Morphine) 1 mg IVP Q4 PRN PRN Reason: Pain, moderate (4-7) - Labs Labs: 09/16/17 07:09 09/16/17 07:09 - Constitutional Appears: Non-toxic - Head Exam Head Exam: ATRAUMATIC - Eye Exam Eye Exam: absent: Scleral icterus - Neck Exam Neck Exam: Full ROM. absent: Lymphadenopathy - Respiratory Exam Respiratory Exam: NORMAL BREATHING PATTERN - Cardiovascular Exam Cardiovascular Exam: REGULAR RHYTHM - GI/Abdominal Exam GI & Abdominal Exam: Soft. absent: Tenderness - Back Exam Additional comments: cutaneous abscess in upper lumbar area s/p I&D/debridement - Neurological Exam Additional comments: Autistic Assessment and Plan - Assessment and Plan (Free Text) Assessment: Cutaneous abscess of the back in the upper lumbar area T2dm Autism Plan: Cont abtx as per Dr Henley Cont post-op care as per Dr Henley Control BS
--- NOTE | 2017-09-16 17:03 | PN ---
LOCATION: Room 371 HISTORY OF PRESENT ILLNESS: This is a 36-year-old female with recent uncontrolled type 2 insulin-requiring diabetes presenting here with mild hyperglycemic accelerations with concomitant lower back abscess and underwent an incision and drainage procedure and is now being followed closely for metabolic management. Her glycemic levels are still fluctuating and today's glucose levels remained elevated at a range of 322 to 330 mg/dL. Her hemoglobin A1c is 14.9% which is quite elevated as noted. This is indicative of suboptimal metabolic control of her diabetic condition even prior to this admission especially that she was only using oral hypoglycemic drug therapy as noted. Her recent chemistries shows a BUN of 14, sodium 136, potassium 3.9, chloride 101, CO2 of 24, glucose 368, and creatinine 0.5. Her TSH level is 3.49 with a triglyceride value of 315 indicative of suboptimal metabolic control of her diabetic condition. ASSESSMENT: This is a 36-year-old female with uncontrolled and decompensated type 2 insulin-requiring diabetes, admitted with a cutaneous abscess with a large infected and necrotic area and now being followed closely for metabolic management. She also has underlying autism and is mentally challenged and this would pose a very big factor for insulin sub-administration at this time and she clearly is insulin requiring with extremely elevated A1c levels and expected multiple potential cutaneous abscesses and future subclinical and overt infections thereof. PLAN OF MANAGEMENT: As discussed with the staff, we will modify once again her basal and bolus insulin regimen and increase the NovoLog to 14 units subcu t.i.d. before meals to start today as ordered. We will also increase the Lantus to 24 units subcu at bedtime daily to start tonight. We will modify the coverage scale to prevent hypoglycemia and detailed orders have been given. We will continue the IV hydration to replenish her lost fluids and electrolytes, especially with increased diuresis from the marked hyperglycemic accelerations expected. We will obtain serial chemistries and supplement accordingly as needed. We will follow with you. Neda Ritchie MD
[2017-09-16] MEDS ORDERED: (Lantus) Insulin Glargine, Recombinant SC SCH ×2 (22:00)
[2017-09-17] MEDS: Vancomycin 1 gm/NS 200 ml 1 GM/200 ML BAG IVPB SCH ×2 (05:36→17:50)
[2017-09-17] MEDS: Piperacillin/Tazobact 3.375 GM in Sodium Chloride 100 ML IVPB SCH ×3 (05:41→22:20)
[2017-09-17] MEDS: (Novolog) Insulin Aspart, Recombinant 100 u/ml 10 ml vial SC SCH ×7 (08:21→22:18)
--- NOTE | 2017-09-17 17:05 | CP.PCM.PN ---
Subjective - Date & Time of Evaluation Date of Evaluation: 09/17/17 Time of Evaluation: 08:00 - Subjective Subjective: blood c/s + await ID Objective - Vital Signs/Intake and Output Vital Signs (last 24 hours): Temp Pulse Resp BP Pulse Ox 98.3 F 91 H 20 109/64 97 09/17/17 08:39 09/17/17 08:39 09/17/17 08:39 09/17/17 08:39 09/17/17 08:39 Intake and Output: 09/17/17 09/17/17 06:59 18:59 Intake Total 1290 1400 Balance 1290 1400 - Medications Medications: Current Medications Acetaminophen (Tylenol 325mg Tab) 650 mg PO Q6 PRN PRN Reason: Fever >100.4 F Vancomycin/Sodium Chloride (Vancomycin 1 Gm/Ns 200 Ml) 1 gm in 200 mls @ 133 mls/hr IVPB Q12H [facility] Stop: 09/18/17 17:01 Last Admin: 09/17/17 05:36 Dose: 133 mls/hr Piperacillin Sod/Tazobactam (Sod 3.375 gm/ Sodium Chloride) 100 mls @ 200 mls/ hr IVPB Q8H [facility] Last Admin: 09/17/17 13:52 Dose: 200 mls/hr Insulin Aspart (Novolog) 0 unit SC ACHS [facility] Last Admin: 09/17/17 11:29 Dose: Not Given Insulin Aspart (Novolog) 24 unit SC AC [facility] Insulin Glargine (Lantus) 44 unit SC HS [facility] Morphine Sulfate (Morphine) 1 mg IVP Q4 PRN PRN Reason: Pain, moderate (4-7) - Labs Labs: 09/16/17 07:09 09/16/17 07:09 - Constitutional Appears: Non-toxic, Chronically Ill - Head Exam Head Exam: NORMOCEPHALIC - Eye Exam Eye Exam: PERRL - ENT Exam ENT Exam: Mucous Membranes Dry - Neck Exam Neck Exam: absent: Lymphadenopathy - Respiratory Exam Respiratory Exam: Decreased Breath Sounds - Cardiovascular Exam Cardiovascular Exam: REGULAR RHYTHM - GI/Abdominal Exam GI & Abdominal Exam: Distended, Soft - Rectal Exam Rectal Exam: Deferred - Exam Exam: NORMAL INSPECTION - Extremities Exam Extremities Exam: absent: Pedal Edema Assessment and Plan (1) Diabetes Status: Acute (2) Cutaneous abscess of back excluding buttocks Status: Acute - Assessment and Plan (Free Text) Assessment: cont iv rx and wound care
--- NOTE | 2017-09-17 20:07 | PN ---
DATE: ENDOCRINOLOGY FOLLOWUP NOTE LOCATION: Room 371. SUBJECTIVE: This is a 56-year-old female who is autistic and mentally challenged presenting here with marked hyperglycemic accelerations and underlying hyperosmolar hyperglycemic state with dehydration and is now being followed closely for metabolic management. Her glycemic levels are fluctuating and still elevated with glucose values ranging from 299 to 362 mg/dL today. It was 313 at bedtime last night. The latest chemistries showed a BUN of 14, sodium 136, potassium 3.9, chloride 101, CO2 24, glucose 368, and creatinine 0.5. Her hemoglobin A1c is 14.9% which is quite elevated and indicative of suboptimal metabolic control of her diabetic condition. So at this time, as discussed at length with the mother at bedside, the imperative need for insulin therapy could not, but be over estimated and she clearly needs insulin for outpatient diabetic management to optimize the metabolic control and also to first of all and/or prevent the microvascular complications expected with extremely elevated A1c levels and poorly controlled type 2 insulin-requiring diabetes. The mother actually used to give the daughter insulin therapies some years ago, but it was stopped and switched over to Trulicity and to metformin 1 gm b.i.d. by her primary physician Dr. Moura. So at this time we will modify once again her basal and bolus insulin regimen and increase the Lantus to 4 units subcu at bedtime daily to start tonight. We will also increase the Novolog to 24 units subcu t.i.d. before meals to start at dinner time today as ordered. We will consider the low dose correction scale using Novolog insulin as given. We will follow and advise accordingly. Neda Ritchie MD
[2017-09-17] MEDS ORDERED: (Lantus) Insulin Glargine, Recombinant SC SCH (22:00)
[2017-09-18] MEDS: Vancomycin 1 gm/NS 200 ml 1 GM/200 ML BAG IVPB SCH ×2 (05:55→17:13)
[2017-09-18] MEDS: Piperacillin/Tazobact 3.375 GM in Sodium Chloride 100 ML IVPB SCH (05:56)
[2017-09-18] MEDS: (Novolog) Insulin Aspart, Recombinant 100 u/ml 10 ml vial SC SCH ×6 (08:11→17:12)
[2017-09-18 08:34] VITALS: O2SAT 97
--- NOTE | 2017-09-18 12:08 | CP.PCM.PN ---
Subjective - Date & Time of Evaluation Date of Evaluation: 09/17/17 Time of Evaluation: 18:00 - Subjective Subjective: NAD Blood c/s + micrococcus Objective - Vital Signs/Intake and Output Vital Signs (last 24 hours): Temp Pulse Resp BP Pulse Ox 96.7 F L 85 20 121/81 97 09/18/17 08:32 09/18/17 08:32 09/18/17 08:32 09/18/17 08:32 09/18/17 08:32 Intake and Output: 09/18/17 09/18/17 06:59 18:59 Intake Total 1350 Balance 1350 - Medications Medications: Current Medications Acetaminophen (Tylenol 325mg Tab) 650 mg PO Q6 PRN PRN Reason: Fever >100.4 F Vancomycin/Sodium Chloride (Vancomycin 1 Gm/Ns 200 Ml) 1 gm in 200 mls @ 133 mls/hr IVPB Q12H [facility] Stop: 09/18/17 17:01 Last Admin: 09/18/17 05:55 Dose: Not Given Piperacillin Sod/Tazobactam Sod (Zosyn 3.375 Gm Iv Premix) 3.375 gm in 50 mls @ 200 mls/hr IVPB Q8H [facility] Insulin Aspart (Novolog) 0 unit SC ACHS [facility] Last Admin: 09/18/17 08:11 Dose: Not Given Insulin Aspart (Novolog) 24 unit SC AC [facility] Last Admin: 09/18/17 08:11 Dose: 24 unit Insulin Glargine (Lantus) 44 unit SC HS [facility] Last Admin: 09/17/17 22:20 Dose: 44 unit Linezolid (Zyvox) 600 mg PO Q12 [facility] Last Admin: 09/18/17 11:10 Dose: 600 mg Morphine Sulfate (Morphine) 1 mg IVP Q4 PRN PRN Reason: Pain, moderate (4-7) - Labs Labs: 09/16/17 07:09 09/16/17 07:09 - Constitutional Appears: Non-toxic - Head Exam Head Exam: NORMAL INSPECTION - Eye Exam Eye Exam: absent: Scleral icterus - ENT Exam ENT Exam: Mucous Membranes Moist - Neck Exam Neck Exam: Full ROM - Respiratory Exam Respiratory Exam: Decreased Breath Sounds - Cardiovascular Exam Cardiovascular Exam: REGULAR RHYTHM - GI/Abdominal Exam GI & Abdominal Exam: Soft. absent: Tenderness - Extremities Exam Extremities Exam: absent: Pedal Edema - Back Exam Additional comments: cutaneous abscess s/p I&D w/ minimal draining - Neurological Exam Neurological Exam: Alert Additional comments: autistic Assessment and Plan - Assessment and Plan (Free Text) Assessment: Cutaneous Abscess in upper lumbar area T2dm Autism Plan: Cont meds Cont abtx Control BS
--- NOTE | 2017-09-18 12:14 | CP.PCM.PN ---
Subjective - Date & Time of Evaluation Date of Evaluation: 09/18/17 Time of Evaluation: 08:30 - Subjective Subjective: improving clinically No chest pain No sob No fever Objective - Vital Signs/Intake and Output Vital Signs (last 24 hours): Temp Pulse Resp BP Pulse Ox 96.7 F L 85 20 121/81 97 09/18/17 08:32 09/18/17 08:32 09/18/17 08:32 09/18/17 08:32 09/18/17 08:32 Intake and Output: 09/18/17 09/18/17 06:59 18:59 Intake Total 1350 Balance 1350 - Medications Medications: Current Medications Acetaminophen (Tylenol 325mg Tab) 650 mg PO Q6 PRN PRN Reason: Fever >100.4 F Vancomycin/Sodium Chloride (Vancomycin 1 Gm/Ns 200 Ml) 1 gm in 200 mls @ 133 mls/hr IVPB Q12H [facility] Stop: 09/18/17 17:01 Last Admin: 09/18/17 05:55 Dose: Not Given Piperacillin Sod/Tazobactam Sod (Zosyn 3.375 Gm Iv Premix) 3.375 gm in 50 mls @ 200 mls/hr IVPB Q8H [facility] Insulin Aspart (Novolog) 0 unit SC ACHS [facility] Last Admin: 09/18/17 08:11 Dose: Not Given Insulin Aspart (Novolog) 24 unit SC AC [facility] Last Admin: 09/18/17 08:11 Dose: 24 unit Insulin Glargine (Lantus) 44 unit SC HS [facility] Last Admin: 09/17/17 22:20 Dose: 44 unit Linezolid (Zyvox) 600 mg PO Q12 [facility] Last Admin: 09/18/17 11:10 Dose: 600 mg Morphine Sulfate (Morphine) 1 mg IVP Q4 PRN PRN Reason: Pain, moderate (4-7) - Labs Labs: 09/16/17 07:09 09/16/17 07:09 - Constitutional Appears: Non-toxic - Neck Exam Neck Exam: Full ROM - Respiratory Exam Respiratory Exam: Clear to Ausculation Bilateral - Cardiovascular Exam Cardiovascular Exam: REGULAR RHYTHM - Extremities Exam Extremities Exam: absent: Pedal Edema - Neurological Exam Neurological Exam: Alert, Oriented x3 Assessment and Plan - Assessment and Plan (Free Text) Assessment: Cutaneous abscess s/p I&D T2dm Autism Plan: Cont present Abtx as per ID Control BS
[2017-09-18] MEDS ORDERED: Piperacill/Tazo 3.375gm in Dex 3.375 GM/50 ML BAG IVPB SCH (15:00)
--- NOTE | 2017-09-18 15:08 | CP.PCM.PN ---
Subjective - Date & Time of Evaluation Date of Evaluation: 09/18/17 Time of Evaluation: 07:00 - Subjective Subjective: family refusing home IV rx and [facility] risks explained pt has large deep wound over spine will d/c on PO rx to follow up with Dr Dennis Objective - Vital Signs/Intake and Output Vital Signs (last 24 hours): Temp Pulse Resp BP Pulse Ox 96.7 F L 85 20 121/81 97 09/18/17 08:32 09/18/17 08:32 09/18/17 08:32 09/18/17 08:32 09/18/17 08:32 Intake and Output: 09/18/17 09/18/17 06:59 18:59 Intake Total 1350 800 Balance 1350 800 - Medications Medications: Current Medications Acetaminophen (Tylenol 325mg Tab) 650 mg PO Q6 PRN PRN Reason: Fever >100.4 F Vancomycin/Sodium Chloride (Vancomycin 1 Gm/Ns 200 Ml) 1 gm in 200 mls @ 133 mls/hr IVPB Q12H [facility] Stop: 09/18/17 17:01 Last Admin: 09/18/17 05:55 Dose: Not Given Piperacillin Sod/Tazobactam Sod (Zosyn 3.375 Gm Iv Premix) 3.375 gm in 50 mls @ 200 mls/hr IVPB Q8H [facility] Last Admin: 09/18/17 14:23 Dose: Not Given Insulin Aspart (Novolog) 0 unit SC ACHS [facility] Last Admin: 09/18/17 12:10 Dose: Not Given Insulin Aspart (Novolog) 24 unit SC AC [facility] Last Admin: 09/18/17 12:11 Dose: 24 unit Insulin Glargine (Lantus) 44 unit SC HS [facility] Last Admin: 09/17/17 22:20 Dose: 44 unit Linezolid (Zyvox) 600 mg PO Q12 [facility] Last Admin: 09/18/17 11:10 Dose: 600 mg Morphine Sulfate (Morphine) 1 mg IVP Q4 PRN PRN Reason: Pain, moderate (4-7) - Labs Labs: 09/16/17 07:09 09/16/17 07:09 - Constitutional Appears: Non-toxic, Chronically Ill - Head Exam Head Exam: NORMOCEPHALIC - Eye Exam Eye Exam: PERRL - ENT Exam ENT Exam: Mucous Membranes Dry - Neck Exam Neck Exam: absent: Lymphadenopathy - Respiratory Exam Respiratory Exam: Decreased Breath Sounds, Clear to Ausculation Bilateral - Cardiovascular Exam Cardiovascular Exam: REGULAR RHYTHM, +S1, +S2 - GI/Abdominal Exam GI & Abdominal Exam: Distended - Rectal Exam Rectal Exam: Deferred - Exam Exam: NORMAL INSPECTION - Extremities Exam Extremities Exam: absent: Pedal Edema Assessment and Plan (1) Diabetes Status: Acute (2) Cutaneous abscess of back excluding buttocks Status: Acute - Assessment and Plan (Free Text) Assessment: d/c on po rx poor prognosis
[2017-09-18 16:22] VITALS: BP 103/69; PULSE 79; TEMP 97.2
--- NOTE | 2017-09-18 22:55 | PN ---
ENDOCRINOLOGY FOLLOWUP NOTE LOCATION: Room 371. SUBJECTIVE: This is a 56-year-old female with recent cutaneous abscesses related to a suboptimal metabolic control of her diabetic condition with persistent and recurrent cutaneous abscesses as mentioned and is now being followed closely for metabolic management. Her glycemic levels are fluctuating, much improved, and today's glucose values have ranged from 265 to 274 mg/dL. It was 266 this morning before breakfast as noted. Her latest chemistries showed a BUN of 14, sodium 136, potassium 3.9, chloride 101, CO2 of 24, glucose 368, and creatinine 0.5. Her hemoglobin A1c is 14.9% which is quite elevated and indicative of suboptimal metabolic control of her diabetic condition even prior to this admission. ASSESSMENT AND PLAN: So at this time, we will modify once again her basal and bolus insulin regimen and increase the NovoLog to 24 units subcu t.i.d. before meals to start today as ordered. We will also increase the Lantus to 44 units subcu at bedtime daily to start tonight. We will titrate incrementally as indicated to optimize metabolic control. We will follow with you. Neda Ritchie MD
[2017-09-19 16:15] LABS: C-PEPTIDE 1.81 ng/mL (0.80-3.85)
== END 2017-09-18 18:20 | disposition home or self-care (01) | DRG 571 ==
LOC: C.ER 12:25 → C.9E 13:58 → C.3T 17:41
PROVIDERS: ADMIT Internal Medicine; ATTEND Internal Medicine
PROC: 0JB70ZZ Excision of Back Subcutaneous Tissue and Fascia, Open Approach (ICD-10-PCS; principal; 2017-09-14 10:00)
DX: L02.212 Cutaneous abscess of back [any part, except buttock and flank] (principal); E87.0 Hyperosmolality and hypernatremia; E11.65 Type 2 diabetes mellitus with hyperglycemia; F84.0 Autistic disorder; E78.5 Hyperlipidemia, unspecified; E86.0 Dehydration; I10 Essential (primary) hypertension; Z79.4 Long term (current) use of insulin; F79 Unspecified intellectual disabilities; Z68.23 Body mass index [BMI] 23.0-23.9, adult

== ENCOUNTER 2018-06-29 11:16 | Emergency (ER) | payer MEDICARE, MEDICAID ==
[2018-06-29 11:29] VITALS: BP 101/69; PULSE 95; RESP 17; TEMP 98.1; O2SAT 98
[2018-06-29] MEDS ORDERED: Tmp-Smz 800 mg-160 mg DS Tab PO STA (12:10)
[2018-06-29] MEDS ORDERED: Tmp-Smz 800 mg-160 mg DS Tab ONE (12:22)
--- NOTE | 2018-06-29 12:26 | C.PDOC ---
History Of Present Illness 37 year old female, whose past medical history includes Autism and Diabetes, is brought to the ED by mother for evaluation of a boil to patient's right lower leg. Mother is unsure of when symptoms began. Patient denies pain or itchiness to the area. Additional history limited secondary to patient's history of autism. Time Seen by Provider: 06/29/18 11:44 Chief Complaint (Nursing): Abnormal Skin Integrity History Per: Patient, Family History/Exam Limitations: other (history of autism ) Onset/Duration Of Symptoms: Unknown Current Symptoms Are (Timing): Still Present Location Of Injury: Right: Foot Quality Of Symptoms: denies: Painful, Itching Additional History Per: Patient, Family Past Medical History Reviewed: Historical Data, Nursing Documentation, Vital Signs Vital Signs: Last Vital Signs Temp 98.1 F 06/29/18 11:27 Pulse 95 H 06/29/18 11:27 Resp 17 06/29/18 11:27 BP 101/69 06/29/18 11:27 Pulse Ox 98 06/29/18 11:27 - Medical History PMH: Hyperlipidemia Surgical History: Back Surgery - [facility] Procedures EXCISION OF BACK SUBCU/FASCIA, OPEN APPROACH (09/13/17) Family History: States: Unknown Family Hx - Social History Hx Alcohol Use: No Hx Substance Use: No - Immunization History Hx Tetanus Toxoid Vaccination: Yes Hx Influenza Vaccination: Yes Hx Pneumococcal Vaccination: No Review Of Systems Constitutional: Negative for: Fever, Chills Skin: Positive for: Other (boil to right lower leg ) Physical Exam - Physical Exam Appears: Non-toxic, No Acute Distress Skin: Normal Color, Warm, Dry, Other ([id number] area of erythema with a central [id number] blister with purulent material ) Extremity: Normal ROM, Capillary Refill (less than 2 seconds ) Neurological/Psych: Other (awake, alert and acting appropriate for baseline (as per mother)) ED Course And Treatment O2 Sat by Pulse Oximetry: 98 (on RA) Pulse Ox Interpretation: Normal - Incision & Drainage Of Abscess Prep Used: Betadine Procedure: Drained Pus, Irrigated Cavity W/Saline, Packed W/Gauze, Cultures O btained And Sent To Lab Medical Decision Making Medical Decision Making: Impression: purulent blister to right lower leg Plan: * wound culture * Bactrim PO Progress: Abscess drained via needle aspiration with 18 gauge needle Wound culture obtained. Bactrim PO given. Disposition Counseled Patient/Family Regarding: Diagnosis, Need For Followup, Rx Given - Disposition Referrals: Neda Ritchie MD [Medical Doctor] - Disposition: HOME/ ROUTINE Disposition Time: 12:11 Condition: STABLE Additional Instructions: Change dressing twice daily Take antibiotics twice daily Follow up with your doctor Prescriptions: Sulfamethoxazole/Trimethoprim [Bactrim DS 800 mg-160 mg] 1 tab PO BID #14 tab Instructions: Abscess Incision and Drainage (DC) Forms: [employer] (Yi) - POA Present On Arrival: None - Clinical Impression Clinical Impression: Abscess of right leg - PA / INSTRUMENT LENS GRINDER / Resident Statement MD/DO has reviewed & agrees with the documentation as recorded. - Scribe Statement The provider has reviewed the documentation as recorded by the Scribe (Ange Coates) All medical record entries made by the Scribe were at my direction and personally dictated by me. I have reviewed the chart and agree that the record accurately reflects my personal performance of the history, physical exam, medical decision making, and the department course for this patient. I have also personally directed, reviewed, and agree with the discharge instructions and disposition.
== END 2018-06-29 12:44 | disposition home or self-care (01) ==
LOC: C.ER 11:16
DX: L02.415 Cutaneous abscess of right lower limb (principal)